=== PATIENT | male | born 1930 | race Hispanic/Latino ===

== ENCOUNTER 2019-04-24 14:43 | Inpatient (IN) | payer MEDICARE ==
--- NOTE | 2019-04-24 15:17 | Emergency Department Report ---
HPI - General Time Seen by Provider: 04/24/19 14:49 - HPI HPI: Room 1 The patient is an 88-year-old male presenting with a chief complaint of atrial fibrillation with a rapid ventricular response. The patient has history of A. fib and is currently on Eliquis. The patient states he had episodes of substernal chest pain 3 days ago and went to the hospital where he was observed and had a chest x-ray and serial labs performed (the patient states all of his studies were normal). Patient states his pain resolved and he was in his usual state of health when he followed up with his alley tender (Dr. Godinez) today. In his alley tender's office he was found to be tachycardic with a rate in the 120s and subsequently sent to the ED for further management. The patient is current ly asymptomatic. Patient does not feel palpitations. The patient states his last stress test occurred approximately 1.5 years ago but he has never had a cardiac catheterization Location: [See above] Duration: [See above] Quality: [See above] Severity: [See above] Timing: [See above] Context: [See above] Modifying factors: [See above] Associated signs and symptoms: [see above] ED Past Medical Hx - Past Medical History Hx Hypertension: Yes Additional medical history: Atrial fibrillation - Surgical History Additional Surgical History: Exploratory laparotomy, right hip replacement, herniorrhaphy - Family History Family history: no significant - Social History Smoking Status: Never Smoker Substance Use Type: None - Medications Home Medications: Home Medications Medication Instructions Recorded Confirmed Last Taken Type Apixaban [Eliquis] 5 mg PO Q12HR 04/24/19 04/24/19 Unknown History Aspirin [Aspirin BABY CHEW TAB] 81 mg PO QDAY 04/24/19 04/24/19 Unknown History Furosemide [Lasix TAB] 40 mg PO BID 04/24/19 04/24/19 Unknown History Metoprolol Tartrate 25 mg PO BID 04/24/19 04/24/19 Unknown History Pantoprazole 40 mg PO DAILY 04/24/19 04/24/19 Unknown History Tamsulosin [Flomax] 0.4 mg PO QDAY 04/24/19 04/24/19 Unknown History ED Review of Systems ROS: Stated complaint: FAST HEART RATE Other details as noted in HPI Constitutional: no symptoms reported Eyes: denies: eye pain ENT: denies: throat pain Respiratory: no symptoms reported Cardiovascular: denies: chest pain, palpitations Endocrine: no symptoms reported Gastrointestinal: denies: abdominal pain Genitourinary: denies: urgency Musculoskeletal: denies: back pain Neurological: denies: headache Physical Exam - Physical Exam Physical Exam: GENERAL: The patient is well-developed well-nourished male lying on stretcher not appearing to be in acute distress. [] HEENT: Normocephalic. Atraumatic. Extraocular motions are intact. Patient has moist mucous membranes. NECK: Supple. Trachea midline CHEST/LUNGS: Clear to auscultation. There is no respiratory distress noted. HEART/CARDIOVASCULAR: Irregularly irregular. There is tachycardia. There is no gallop rub or murmur. ABDOMEN: Abdomen is soft, nontender. Patient has normal bowel sounds. There is no abdominal distention. SKIN: There is no rash. There is no edema. There is no diaphoresis. NEURO: The patient is awake, alert, and oriented. The patient is cooperative. The patient has no focal neurologic deficits. The patient has normal speech MUSCULOSKELETAL: There is no evidence of acute injury. ED Course - Consultations Consultation #1: 04/24/19 15:40 Case discussed with alley tender Dr. Godinez and Cabrera Adames. Recommend initiating amiodarone bolus and drip. Admit to hospital ED Medical Decision Making - Lab Data Result diagrams: 04/24/19 15:13 04/24/19 15:13 Laboratory Tests 04/24/19 04/24/19 04/24/19 15:13 15:13 15:13 WBC 6.1 RBC 4.42 Hgb 14.3 Hct 43.6 MCV 99 H MCH 32 MCHC 33 RDW 13.3 Plt Count 242 Lymph % (Auto) 23.3 [place] % (Auto) 8.7 H Eos % (Auto) 3.6 Baso % (Auto) 0.9 Lymph # 1.4 [place] # 0.5 Eos # 0.2 Baso # 0.1 Seg Neutrophils % 63.5 Seg Neutrophils # 3.9 PT 14.2 INR 1.11 APTT 26.9 Sodium 139 Potassium 4.3 Chloride 105.3 Carbon Dioxide 23 Anion Gap 15 BUN 19 Creatinine 1.4 Estimated GFR 48 BUN/Creatinine Ratio 14 Glucose 110 H Calcium 8.9 Magnesium Total Bilirubin 1.00 AST 12 ALT 13 Alkaline Phosphatase 56 Total Creatine Kinase CK-MB (CK-2) CK-MB (CK-2) Rel Index Troponin T Total Protein 6.9 Albumin 3.6 L Albumin/Globulin Ratio 1.1 TSH Free T4 04/24/19 04/24/19 15:13 15:13 WBC RBC Hgb Hct MCV MCH MCHC RDW Plt Count Lymph % (Auto) [place] % (Auto) Eos % (Auto) Baso % (Auto) Lymph # [place] # Eos # Baso # Seg Neutrophils % Seg Neutrophils # PT INR APTT Sodium Potassium Chloride Carbon Dioxide Anion Gap BUN Creatinine Estimated GFR BUN/Creatinine Ratio Glucose Calcium Magnesium 2.20 Total Bilirubin AST ALT Alkaline Phosphatase Total Creatine Kinase 110 CK-MB (CK-2) 3.5 CK-MB (CK-2) Rel Index 3.1 Troponin T < 0.010 Total Protein Albumin Albumin/Globulin Ratio TSH 2.560 Free T4 1.22 - EKG Data -: EKG Interpreted by Me Rate: tachycardia (atrial flutter) - EKG Data When compared to previous EKG there are: previous EKG unavailable Interpretation: other (atrial flutter) - Radiology Data Radiology results: image reviewed (chest x-ray) interpreted by me: Chest x-ray-no focal infiltrates, no pneumothorax - Differential Diagnosis atrial fibrillation with a rapid ventricular response Critical care attestation.: If time is entered above; I have spent that time in minutes in the direct care of this critically ill patient, excluding procedure time. ED Disposition Clinical Impression: Atrial flutter Disposition: OP ADMIT IP TO THIS HOSP Is pt being admited?: Yes Does the pt Need Aspirin: Yes Condition: Fair Time of Disposition: 16:00 (hospitalist notified (Dr Rosa))
[2019-04-24 15:25] LABS: Basophils # (Auto) 0.1 K/mm3 (0.0-0.1); Basophils % (Auto) 0.9 % (0.0-1.8); Eosinophils # (Auto) 0.2 K/mm3 (0.0-0.4); Eosinophils % (Auto) 3.6 % (0.0-4.3); Hematocrit 43.6 % (35.5-45.6); Hemoglobin 14.3 gm/dl (11.8-15.2); Lymphocytes # (Auto) 1.4 K/mm3 (1.2-5.4); Lymphocytes % (Auto) 23.3 % (13.4-35.0); Mean Corpuscular HGB Conc 33 % (32-34); Mean Corpuscular Volume 99 fl (84-94); Monocytes # (Auto) 0.5 K/mm3 (0.0-0.8); Monocytes % (Auto) 8.7 % (0.0-7.3); Platelet Count 242 K/mm3 (140-440); Red Blood Count 4.42 M/mm3 (3.65-5.03); Red Cell Distribution Width 13.3 % (13.2-15.2)
[2019-04-24] MEDS ORDERED: dilTIAZem 25 MG/5 ML INJ IV ONE (15:26)
[2019-04-24 15:35] LABS: INR 1.11 (0.87-1.13)
[2019-04-24 15:36] LABS: Partial Thromboplastin Time 26.9 Sec. (24.2-36.6)
[2019-04-24] MEDS ORDERED: AMIODARONE 150 MG/3 ML INJ IV ONE (15:38)
--- NOTE | 2019-04-24 15:45 | Event Note ---
Date: 04/24/19 Pt is followed in our office by Dr. Brooke. He has PMHx of paroxysmal atrial flutter (anticoagulated on Eliquis), HTN, HLP, BLE lymphedema. He presented to our office today for scheduled appt and was found to be in atrial flutter with rvr and was referred to ED for further eval/management. Initiate IV amio and resume home Eliquis. Admission per hospitalists. Echo done 12/2018 showed EF 60- 65%, no significant valvular abnormalities. Further recs to follow per hospital course. Soraida RODRIGUEZ NP / DR. RBOOKE
[2019-04-24 15:46] LABS: Creatine Kinase MB 3.5 ng/mL (0.0-4.0)
[2019-04-24 15:50] LABS: Albumin 3.6 g/dL (3.9-5); Calcium 8.9 mg/dL (8.4-10.2)
[2019-04-24 15:57] LABS: Free T4 (Free Thyroxine) 1.22 ng/dL (0.76-1.46)
[2019-04-24] MEDS ORDERED: SODIUM CHLORIDE 0.9% 500 ML 500 ML ONE (16:10)
--- NOTE | 2019-04-24 16:46 | XRay Report ---
CHEST 1 VIEW 04/24/2019 4:20 PM INDICATION / CLINICAL INFORMATION: atrial flutter. COMPARISON: None available. FINDINGS: SUPPORT DEVICES: None. HEART / MEDIASTINUM: Cardiac size is normal with mild aortic atherosclerosis and central vascular con gestion. LUNGS / PLEURA: Lung volumes are reduced with probable bibasilar atelectasis. No significant pleural effusion. No pneumothorax. ADDITIONAL FINDINGS: No significant additional findings. IMPRESSION: 1. Central vascular congestion may be due in part to low lung volumes resulting in crowding of the va sculature. 2. Probable bibasilar atelectasis. Signer Name: Gael Bhatt MD Signed: 04/24/2019 4:42 PM Workstation Name: [id number]
[2019-04-24] MEDS: AMIODARONE 900 MG in DEXTROSE 5% IN WATER 482 ML IV SCH (16:57)
[2019-04-24] MEDS ORDERED: HYDROmorphone 1 MG/1 ML INJ IV PRN (18:07)
[2019-04-24] MEDS ORDERED: ACETAMINOPHEN 325 MG TAB PO PRN (18:07)
[2019-04-24] MEDS ORDERED: ONDANSETRON 4 MG/2 ML INJ IV PRN (18:07)
[2019-04-24] MEDS ORDERED: METOCLOPRAMIDE 10 MG/2 ML INJ IV PRN (18:07)
[2019-04-24] MEDS ORDERED: oxyCODONE /ACETAMINOPHEN 5-325MG TAB PO PRN (18:07)
[2019-04-24] MEDS ORDERED: NON-FORMULARY EACH (Pantoprazole 40 MG) PO SCH (18:15)
[2019-04-24] MEDS ORDERED: PANTOPRAZOLE 40 MG TAB PO ONE (19:42)
[2019-04-24] MEDS ORDERED: ASPIRIN 325 MG TAB ONE (19:42)
[2019-04-24] MEDS ORDERED: ASPIRIN 81 MG TAB CHEW ONE (19:46)
[2019-04-24] MEDS: ASPIRIN 81 MG TAB CHEW PO SCH (19:47)
[2019-04-24] MEDS: PANTOPRAZOLE 40 MG TAB PO SCH (19:47)
[2019-04-24] MEDS: TAMSULOSIN 0.4 MG CAP PO SCH (19:47)
[2019-04-24] MEDS: METOPROLOL TARTRATE 25 MG TAB PO SCH (21:57)
[2019-04-24] MEDS: FUROSEMIDE 40 MG TAB PO SCH (21:58)
[2019-04-24] MEDS: APIXABAN 5 MG TAB PO SCH (21:58)
[2019-04-24] MEDS: FAMOTIDINE 20 MG TAB PO SCH (21:59)
[2019-04-24] MEDS ORDERED: NON-FORMULARY EACH (Metoprolol Tartrate 25 MG) PO SCH (22:00)
[2019-04-25 06:47] LABS: Basophils # (Auto) 0.1 K/mm3 (0.0-0.1); Basophils % (Auto) 1.3 % (0.0-1.8); Eosinophils # (Auto) 0.3 K/mm3 (0.0-0.4); Eosinophils % (Auto) 3.2 % (0.0-4.3); Hematocrit 43.6 % (35.5-45.6); Hemoglobin 14.6 gm/dl (11.8-15.2); Lymphocytes # (Auto) 1.9 K/mm3 (1.2-5.4); Lymphocytes % (Auto) 23.6 % (13.4-35.0); Mean Corpuscular HGB Conc 34 % (32-34); Mean Corpuscular Volume 98 fl (84-94); Monocytes # (Auto) 0.7 K/mm3 (0.0-0.8); Monocytes % (Auto) 8.9 % (0.0-7.3); Platelet Count 239 K/mm3 (140-440); Red Blood Count 4.45 M/mm3 (3.65-5.03); Red Cell Distribution Width 13.3 % (13.2-15.2)
[2019-04-25 07:06] LABS: Albumin 4.1 g/dL (3.9-5); Calcium 8.9 mg/dL (8.4-10.2)
--- NOTE | 2019-04-25 07:33 | Event Note ---
Date: 04/24/19 See H/p in reports A fib with rvr
--- NOTE | 2019-04-25 08:01 | History and Physical Report ---
CHIEF COMPLAINT: Palpitations since a.m. HISTORY OF PRESENT ILLNESS: An 88-year-old male who presents to the Cardiology office with palpitations. The patient was found to be in atrial fibrillation with rapid ventricular response. The patient has episodes of chest pain for the last 3 days. The patient had an echocardiogram recently, which was normal. The patient was sent from the slagger's office to the Emergency Room for management of atrial fibrillation with rapid ventricular response. PAST MEDICAL HISTORY: Significant for hypertension and atrial fibrillation. PAST SURGICAL HISTORY: Exploratory laparotomy, right hip replacement, and herniorrhaphy. FAMILY HISTORY: No significant family history. SOCIAL HISTORY: Does not smoke. No alcohol, no recreational drugs. CURRENT MEDICATIONS: Lasix 40 mg twice a day, metoprolol 25 mg twice a day, tamsulosin 0.4 mg p.o. daily, and Eliquis 5 mg q. 12 hours. REVIEW OF SYSTEMS: Significant for palpitations and intermittent chest pain for 3 days. Otherwise, review of systems is negative. PHYSICAL EXAMINATION: GENERAL: Elderly male, cooperative during examination. VITAL SIGNS: Blood pressure is 115/67, heart rate is in the 150s, temperature 97.6, pulse is 94, and respiratory rate is 16. HEENT: Unremarkable. NECK: Supple, no lymphadenopathy, no thyromegaly. LUNGS: Clear to auscultation and percussion. Good air entry. CARDIOVASCULAR: S1, S2 heard. No gallop, no murmur, no rub. Apical impulse in left fifth intercostal space and midclavicular line. ABDOMEN: Soft and benign. No hepatosplenomegaly. No guarding, no rigidity. Hernial orifices are normal. EXTREMITIES: Good pedal pulses. No pedal edema. CENTRAL NERVOUS SYSTEM: Alert and oriented x 4, nonfocal exam. SKIN: Normal. LABORATORY DATA AND IMAGING STUDIES: EKG shows atrial fibrillation with rapid ventricular, heart rate of 150. Chest x-ray, no acute findings. Labs significant for normal CBC and normal electrolytes. A1c is 6.1, glucose is 110, albumin is 3.6, slightly low. ASSESSMENT AND PLAN: 1. Atrial fibrillation with rapid ventricular response. The patient started on amiodarone drip and titrated to 1.5 mg. Cardiology consult was requested, on anticoagulation with Eliquis. Chest pain, rule out myocardial infarction, serial troponins. We will defer to Cardiology regarding stress test. The patient had a recent echo, which was normal. 2. Hypertension. Continue metoprolol 25 mg twice a day. 3. Congestive heart failure. Continue furosemide 40 mg twice a day. The patient is not on potassium. Potassium was started. 4. Benign prostatic hypertrophy. Continue tamsulosin. 5. Deep venous thrombosis prophylaxis. The patient is already on Eliquis and Protonix. No need for GI prophylaxis and deep venous thrombosis prophylaxis. JOB# [id number] VSM/NTS
[2019-04-25] MEDS: ASPIRIN 81 MG TAB CHEW PO SCH (11:17)
[2019-04-25] MEDS: FAMOTIDINE 20 MG TAB PO SCH ×2 (11:17→21:18)
[2019-04-25] MEDS: FUROSEMIDE 40 MG TAB PO SCH ×2 (11:17→21:18)
[2019-04-25] MEDS: PANTOPRAZOLE 40 MG TAB PO SCH (11:18)
[2019-04-25] MEDS: POTASSIUM CHLORIDE ER 20 MEQ TAB PO SCH ×2 (11:18→21:19)
[2019-04-25] MEDS: METOPROLOL TARTRATE 25 MG TAB PO SCH ×2 (11:18→21:19)
[2019-04-25] MEDS: TAMSULOSIN 0.4 MG CAP PO SCH (11:18)
[2019-04-25] MEDS: APIXABAN 5 MG TAB PO SCH ×2 (11:18→21:19)
--- NOTE | 2019-04-25 11:29 | Consultation ---
History of Present Illness Consult date: 04/25/19 Requesting physician: KELSEA CONTRERAS Consult reason: atrial fibrillation, known to you History of present illness: Pt is an 88YO male with a past medical history of paroxysmal atrial flutter (anticoagulated on Eliquis), HTN, HLP, BLE lymphedema. He is followed in our office by Dr. Godinez. He presented to our office yesterday for scheduled appt, c/o some SOB, increased BLE swelling, near syncopal spells at home and was found to be in atrial flutter with rvr and was referred to ED for further eval/management. He was initiated on IV amio overnight. He remains in AFlutter with HR 120s although he states he is feeling better today. Echo done 12/2018 showed EF 60-65%, no significant valvular abnormalities. Lexiscan MPI stress test done 12/2015 was negative. Past History Past Medical History: atrial fib, hypertension, hyperlipidemia, other (BLE lymphedema) Social history: , lives with family. denies: smoking, alcohol abuse, prescription drug abuse Medications and Allergies Allergies Allergy/AdvReac Type Severity Reaction Status Date / Time oxycodone AdvReac Unknown Verified 04/24/19 15:10 Home Medications Medication Instructions Recorded Confirmed Last Taken Type Apixaban [Eliquis] 5 mg PO Q12HR 04/24/19 04/24/19 Unknown History Aspirin [Aspirin BABY CHEW TAB] 81 mg PO QDAY 04/24/19 04/24/19 Unknown History Furosemide [Lasix TAB] 40 mg PO BID 04/24/19 04/24/19 Unknown History Metoprolol Tartrate 25 mg PO BID 04/24/19 04/24/19 Unknown History Pantoprazole 40 mg PO DAILY 04/24/19 04/24/19 Unknown History Tamsulosin [Flomax] 0.4 mg PO QDAY 04/24/19 04/24/19 Unknown History Active Meds: Active Medications Acetaminophen (Tylenol) 650 mg PO Q4H PRN PRN Reason: Pain MILD(1-3)/Fever >100.5/BURNETT Apixaban (Eliquis) 5 mg PO Q12HR [facility]; Protocol Last Admin: 04/25/19 11:18 Dose: 5 mg Documented by: Aspirin (Baby Aspirin) 81 mg PO QDAY [facility] Last Admin: 04/25/19 11:17 Dose: 81 mg Documented by: Famotidine (Pepcid) 20 mg PO BID [facility] Last Admin: 04/25/19 11:17 Dose: 20 mg Documented by: Furosemide (Lasix) 40 mg PO BID [facility] Last Admin: 04/25/19 11:17 Dose: 40 mg Documented by: Hydromorphone HCl (Dilaudid) 0.5 mg IV Q3H PRN PRN Reason: Pain , Severe (7-10) Amiodarone HCl 900 mg/ (Dextrose) 500 mls @ 33.333 mls/hr IV DIRECT [facility]; Protocol Last Admin: 04/24/19 16:57 Dose: 1 mg/min, 33.333 mls/hr Documented by: Metoclopramide HCl (Reglan) 10 mg IV Q6H PRN PRN Reason: Nausea And Vomiting Metoprolol Tartrate (Metoprolol) 25 mg PO BID [facility] Last Admin: 04/25/19 11:18 Dose: 25 mg Documented by: Ondansetron HCl (Zofran) 4 mg IV Q8H PRN PRN Reason: Nausea And Vomiting Oxycodone/Acetaminophen (Percocet 5/325) 1 tab PO Q6H PRN PRN Reason: Pain, Moderate (4-6) Pantoprazole Sodium (Protonix) 40 mg PO DAILY [facility] Last Admin: 04/25/19 11:18 Dose: 40 mg Documented by: Potassium Chloride (K-Dur) 20 meq PO BID [facility] Last Admin: 04/25/19 11:18 Dose: 20 meq Documented by: Sodium Chloride (Sodium Chloride Flush Syringe 10 Ml) 10 ml IV BID [facility] Last Admin: 04/25/19 11:18 Dose: 10 ml Documented by: Sodium Chloride (Sodium Chloride Flush Syringe 10 Ml) 10 ml IV PRN PRN PRN Reason: LINE FLUSH Tamsulosin HCl (Flomax) 0.4 mg PO QDAY [facility] Last Admin: 04/25/19 11:18 Dose: 0.4 mg Documented by: Review of Systems Constitutional: no fever, no chills, no sweats Ears, nose, mouth and throat: no ear pain, no nose pain, no sinus pressure, no sinus pain Cardiovascular: edema, shortness of breath, dyspnea on exertion, leg edema, no chest pain, no orthopnea, no palpitations, no rapid/irregular heart beat, no syncope, no lightheadedness Respiratory: shortness of breath, dyspnea on exertion, no cough, no congestion, no wheezing, no pain on inspiration Gastrointestinal: no abdominal pain, no nausea, no vomiting, no diarrhea, no c onstipation, no change in bowel habits Genitourinary Male: no dysuria, no hematuria, no flank pain, no discharge, no urinary frequency, no urinary hesitancy Musculoskeletal: no neck stiffness, no neck pain, no shooting arm pain, no arm numbness/tingling, no low back pain, no shooting leg pain Integumentary: no rash, no pruritis, no redness, no sores Neurological: no head injury, no paralysis, no weakness, no parathesias, no numbness, no tingling, no seizures, no syncope Psychiatric: no anxiety Endocrine: no cold intolerance, no heat intolerance Hematologic/Lymphatic: no easy bruising, no easy bleeding Allergic/Immunologic: no urticaria, no wheezing Physical Examination Vital Signs Temp Pulse Resp BP Pulse Ox 98.2 F 126 H 14 132/84 99 04/24/19 15:11 04/24/19 15:11 04/24/19 15:11 04/24/19 15:11 04/24/19 15:11 General appearance: no acute distress HEENT: Positive: PERRL, Normocephaly, Mucus Membranes Moist Neck: Positive: neck supple, trachea midline Cardiac: Positive: irregularly irregular, S1/S2, Tachycardia Lungs: Positive: Decreased Breath Sounds Neuro: Positive: Grossly Intact Abdomen: Negative: Tender Skin: Negative: Rash Musculoskeletal: No Pain Extremities: Present: +2 Edema (BLE lymphedema) Results 04/25/19 05:48 04/25/19 05:48 Cardiac Enzymes 04/24/19 04/24/19 04/25/19 Range/Units 15:13 15:13 05:48 AST 12 12 (5-40) units/L CK-MB (CK-2) 3.5 (0.0-4.0) ng/mL Coagulation 04/24/19 Range/Units 15:13 PT 14.2 (12.2-14.9) Sec. INR 1.11 (0.87-1.13) APTT 26.9 (24.2-36.6) Sec. CBC 04/24/19 04/25/19 Range/Units 15:13 05:48 WBC 6.1 7.9 (4.5-11.0) K/mm3 RBC 4.42 4.45 (3.65-5.03) M/mm3 Hgb 14.3 14.6 (11.8-15.2) gm/dl Hct 43.6 43.6 (35.5-45.6) % Plt Count 242 239 (140-440) K/mm3 Lymph # 1.4 1.9 (1.2-5.4) K/mm3 Bartholomew # 0.5 0.7 (0.0-0.8) K/mm3 Eos # 0.2 0.3 (0.0-0.4) K/mm3 Baso # 0.1 0.1 (0.0-0.1) K/mm3 Comprehensive Metabolic Panel 04/24/19 04/25/19 Range/Units 15:13 05:48 Sodium 139 143 (137-145) mmol/L Potassium 4.3 4.2 (3.6-5.0) mmol/L Chloride 105.3 104.7 (98-107) mmol/L Carbon Dioxide 23 25 (22-30) mmol/L BUN 19 18 (9-20) mg/dL Creatinine 1.4 1.4 (0.8-1.5) mg/dL Glucose 110 H 106 H (75-100) mg/dL Calcium 8.9 8.9 (8.4-10.2) mg/dL AST 12 12 (5-40) units/L ALT 13 13 (7-56) units/L Alkaline Phosphatase 56 60 (35-129) units/L Total Protein 6.9 6.6 (6.3-8.2) g/dL Albumin 3.6 L 4.1 (3.9-5) g/dL - Imaging and Cardiology Echo: report reviewed ( 12/2018 showed EF 60-65%, no significant valvular abnormalities. ) EKG: report reviewed, image reviewed EKG interpretations - Telemetry EKG Rhythm: Atrial Flutter - EKG Supraventricular dysrhythmia: atrial flutter Assessment and Plan Will attempt to optimize HR/chemical conversion - give additional bolus of IV amio and cont amio gtt. Cont PO lopressor and titrate as tolerated. Pt may ultimately require DCCV. Pt has been anticoagulated with Eliquis at home, however, he reports intermittent noncompliance over the past several months and therefore we have recommended LONG guided DCCV if unable to chemically convert to NSR. We will tentatively plan for LONG guided DCCV tomorrow around 7:30AM. Indications, potential risks and benefits of LONG guided DCCV reviewed with pt and pt's at bedside and they are agreeable to proceed. NPO after MN. The patient has been seen in conjunction with Dr. Godinez who agrees with the assessment and plan of care. - Patient Problems (1) Atrial flutter with rapid ventricular response Current Visit: Yes Status: Acute (2) HTN (hypertension) Current Visit: Yes Status: Chronic (3) Hyperlipidemia Current Visit: Yes Status: Chronic (4) Lymphedema of both lower extremities Current Visit: Yes Status: Chronic
[2019-04-25] MEDS ORDERED: AMIODARONE 150 MG in DEXTROSE 5% IN WATER 97 ML IV ONE (11:35)
[2019-04-25] MEDS: AMIODARONE 900 MG in DEXTROSE 5% IN WATER 482 ML IV SCH (14:21)
--- NOTE | 2019-04-25 14:43 | Progress Note ---
Assessment and Plan Assessment and plan: 88-year-old male was sent from cardiology office for afib with RVR A. fib with RVR - Patient is on IV amiodarone, continue and eliquis and metoprolol - Rate is controlled, still in a.fib - Cardiology documented that they are going to do electric cardioversion tomorrow Disposition; continue inpatient care History Interval history: Patient was seen and evaluated this morning, patient was alert and oriented, denied any palpitations. Hospitalist Physical - Physical exam Narrative exam: Not in cardiopulmonary distress. The patient appeared well nourished and normally developed. Vital signs as documented. Head exam is unremarkable. No scleral icterus . Neck is without jugular venous distension, thyromegaly, or carotid bruits. Lungs are clear to auscultation. Cardiac exam reveals irregular rate and Rhythm. Abdominal exam reveals normal bowel sounds. Extremities are nonedematous and both femoral and pedal pulses are normal. ROTARY DRILL OPERATOR: Alert and oriented 3. No focal weakness. - Constitutional Vitals: Temp Pulse Resp BP Pulse Ox 97.4 F L 113 H 18 139/95 96 04/25/19 08:45 04/25/19 14:06 04/25/19 08:45 04/25/19 08:45 04/25/19 04:00 General appearance: Present: no acute distress Results - Labs CBC & Chem 7: 04/25/19 05:48 04/25/19 05:48 Labs: Laboratory Last Values WBC 7.9 K/mm3 (4.5-11.0) 04/25/19 05:48 RBC 4.45 M/mm3 (3.65-5.03) 04/25/19 05:48 Hgb 14.6 gm/dl (11.8-15.2) 04/25/19 05:48 Hct 43.6 % (35.5-45.6) 04/25/19 05:48 MCV 98 fl (84-94) H 04/25/19 05:48 MCH 33 pg (28-32) H 04/25/19 05:48 MCHC 34 % (32-34) 04/25/19 05:48 RDW 13.3 % (13.2-15.2) 04/25/19 05:48 Plt Count 239 K/mm3 (140-440) 04/25/19 05:48 Lymph % (Auto) 23.6 % (13.4-35.0) 04/25/19 05:48 [place] % (Auto) 8.9 % (0.0-7.3) H 04/25/19 05:48 Eos % (Auto) 3.2 % (0.0-4.3) 04/25/19 05:48 Baso % (Auto) 1.3 % (0.0-1.8) 04/25/19 05:48 Lymph # 1.9 K/mm3 (1.2-5.4) 04/25/19 05:48 [place] # 0.7 K/mm3 (0.0-0.8) 04/25/19 05:48 Eos # 0.3 K/mm3 (0.0-0.4) 04/25/19 05:48 Baso # 0.1 K/mm3 (0.0-0.1) 04/25/19 05:48 Seg Neutrophils % 63.0 % (40.0-70.0) 04/25/19 05:48 Seg Neutrophils # 5.0 K/mm3 (1.8-7.7) 04/25/19 05:48 PT 14.2 Sec. (12.2-14.9) 04/24/19 15:13 INR 1.11 (0.87-1.13) 04/24/19 15:13 APTT 26.9 Sec. (24.2-36.6) 04/24/19 15:13 Sodium 143 mmol/L (137-145) 04/25/19 05:48 Potassium 4.2 mmol/L (3.6-5.0) 04/25/19 05:48 Chloride 104.7 mmol/L (98-107) 04/25/19 05:48 Carbon Dioxide 25 mmol/L (22-30) 04/25/19 05:48 Anion Gap 18 mmol/L 04/25/19 05:48 BUN 18 mg/dL (9-20) 04/25/19 05:48 Creatinine 1.4 mg/dL (0.8-1.5) 04/25/19 05:48 Estimated GFR 48 ml/min 04/25/19 05:48 BUN/Creatinine Ratio 13 % 04/25/19 05:48 Glucose 106 mg/dL (75-100) H 04/25/19 05:48 Hemoglobin A1c 6.1 % (4-6) H 04/24/19 15:13 Calcium 8.9 mg/dL (8.4-10.2) 04/25/19 05:48 Magnesium 2.20 mg/dL (1.7-2.3) 04/24/19 15:13 Total Bilirubin 1.70 mg/dL (0.1-1.2) H 04/25/19 05:48 AST 12 units/L (5-40) 04/25/19 05:48 ALT 13 units/L (7-56) 04/25/19 05:48 Alkaline Phosphatase 60 units/L (35-129) 04/25/19 05:48 Total Creatine Kinase 110 units/L (55-170) 04/24/19 15:13 CK-MB (CK-2) 3.5 ng/mL (0.0-4.0) 04/24/19 15:13 CK-MB (CK-2) Rel Index 3.1 (0-4) 04/24/19 15:13 Troponin T < 0.010 ng/mL (0.00-0.029) 04/24/19 15:13 Total Protein 6.6 g/dL (6.3-8.2) 04/25/19 05:48 Albumin 4.1 g/dL (3.9-5) 04/25/19 05:48 Albumin/Globulin Ratio 1.6 % 04/25/19 05:48 TSH 2.560 mlU/mL (0.270-4.200) 04/24/19 15:13 Free T4 1.22 ng/dL (0.76-1.46) 04/24/19 15:13 Active Medications - Current Medications Current Medications: Generic Name Dose Route Start Last Admin Trade Name Freq PRN Reason Stop Dose Admin Acetaminophen 650 mg 04/24/19 18:07 Tylenol PO Q4H PRN Pain MILD(1-3)/Fever >100.5/BURNETT Apixaban 5 mg 04/24/19 22:00 04/25/19 11:18 Eliquis PO 5 mg Q12HR [facility] Administration Protocol Aspirin 81 mg 04/24/19 19:00 04/25/19 11:17 Baby Aspirin PO 81 mg QDAY [facility] Administration Famotidine 20 mg 04/24/19 22:00 04/25/19 11:17 Pepcid PO 20 mg BID [facility] Administration Furosemide 40 mg 04/24/19 22:00 04/25/19 11:17 Lasix PO 40 mg BID [facility] Administration Hydromorphone HCl 0.5 mg 04/24/19 18:07 Dilaudid IV Q3H PRN Pain , Severe (7-10) Amiodarone HCl 900 mg/ 500 mls @ 33.333 mls/hr 04/24/19 16:00 04/25/19 14:21 Dextrose IV 0.5 mg/min DIRECT [facility] 16.66 mls/hr Administration Protocol 1 MG/MIN Metoclopramide HCl 10 mg 04/24/19 18:07 Reglan IV Q6H PRN Nausea And Vomiting Metoprolol Tartrate 25 mg 04/24/19 22:00 04/25/19 11:18 Metoprolol PO 25 mg BID [facility] Administration Ondansetron HCl 4 mg 04/24/19 18:07 Zofran IV Q8H PRN Nausea And Vomiting Oxycodone/Acetaminophen 1 tab 04/24/19 18:07 Percocet 5/325 PO Q6H PRN Pain, Moderate (4-6) Pantoprazole Sodium 40 mg 04/24/19 18:30 04/25/19 11:18 Protonix PO 40 mg DAILY [facility] Administration Potassium Chloride 20 meq 04/25/19 10:00 04/25/19 11:18 K-Dur PO 20 meq BID [facility] Administration Sodium Chloride 10 ml 04/24/19 22:00 04/25/19 11:18 Sodium Chloride Flush Syringe 10 Ml IV 10 ml BID [facility] Administration Sodium Chloride 10 ml 04/24/19 18:07 Sodium Chloride Flush Syringe 10 Ml IV PRN PRN LINE FLUSH Tamsulosin HCl 0.4 mg 04/24/19 19:00 04/25/19 11:18 Flomax PO 0.4 mg QDAY [facility] Administration
[2019-04-26 06:02] LABS: Calcium 8.4 mg/dL (8.4-10.2)
[2019-04-26] MEDS ORDERED: SODIUM CHLORIDE 0.9% 500 ML 500 ML IV SCH (07:00)
[2019-04-26] MEDS ORDERED: BENZOCAINE 20% TOP SPRAY 0.5 ML UNIT DOSE MM NR (07:00)
[2019-04-26] MEDS ORDERED: PROPOFOL 200 MG/20 ML VIAL IV ONE ×2 (07:06)
--- NOTE | 2019-04-26 07:26 | Anesthesia Consultation ---
Anesthesia Consult and Med Hx Date of service: 04/26/19 - Airway Anesthetic Teeth Evaluation: Dentures ROM Head & Neck: Adequate Mental/Hyoid Distance: Adequate Mallampati Class: Class II Intubation Access Assessment: Good - Pulmonary Exam CTA: Yes - Cardiac Exam Cardiac Exam: RRR - Pre-Operative Health Status ASA Pre-Surgery Classification: ASA3 Proposed Anesthetic Plan: General - Cardiovascular System Hx Hypertension: Yes - Central Nervous System Hx Psychiatric Problems: No
--- NOTE | 2019-04-26 07:26 | Anesthesia Day of Surgery ---
Anesthesia Day of Surgery - Day of Surgery Patient Examined: Yes Patient H&P Reviewed: Yes Patient is NPO: Yes
[2019-04-26] MEDS ORDERED: EPINEPHrine 1:10,000 1 MG/10 ML SYRINGE ONE (07:54)
[2019-04-26] MEDS ORDERED: ePHEDrine SULFATE 50 MG/1 ML INJ ONE (07:56)
[2019-04-26] MEDS ORDERED: LIDOCAINE MPF (2%) 20 MG/1 ML VIAL 5 ML ONE (08:00)
--- NOTE | 2019-04-26 08:00 | Progress Note ---
Assessment and Plan pt was cardioverted to nsr from aflutter, cont elquis and stop amio and cont lopressor and cont diurectics and monitor rhtym and post debbie care discuss with in detail. - Patient Problems (1) Acute diastolic CHF (congestive heart failure) Current Visit: Yes Status: Acute (2) Atrial flutter Current Visit: Yes Status: Acute Qualifiers: Atrial flutter type: typical Qualified Code(s): I48.3 - Typical atrial flutter (3) HTN (hypertension) Current Visit: Yes Status: Chronic (4) Hyperlipidemia Current Visit: Yes Status: Chronic Qualifiers: Hyperlipidemia type: mixed hyperlipidemia Qualified Code(s): E78.2 - Mixed hyperlipidemia (5) Lymphedema of both lower extremities Current Visit: Yes Status: Chronic Subjective Date of service: 04/26/19 Principal diagnosis: aflutter Interval history: pt has no palpations and sob is stable Objective Vital Signs Temp Pulse Pulse Pulse Pulse Resp Resp 04/26/19 07:39 91 H 18 04/26/19 07:33 110 H 04/26/19 07:28 111 H 04/26/19 04:48 121 H 04/26/19 04:08 97.8 F 16 04/26/19 00:01 97.7 F 121 H 20 04/25/19 21:19 125 H 20 04/25/19 19:29 97.9 F 125 H 16 04/25/19 17:16 98.3 F 123 H 18 04/25/19 14:06 113 H 113 H 04/25/19 08:45 97.4 F L 18 Resp BP BP BP Pulse Ox Pulse Ox Pulse Ox 04/26/19 07:39 127/72 97 04/26/19 07:33 14 127/72 100 04/26/19 07:28 12 132/79 98 04/26/19 04:48 04/26/19 04:08 91/58 04/26/19 00:01 103/52 96 04/25/19 21:19 115/60 04/25/19 19:29 115/60 96 04/25/19 17:16 112/79 97 04/25/19 14:06 04/25/19 08:45 139/95 - Physical Examination HEENT: Positive: PERRL, Normocephaly, Mucus Membranes Moist Neck: Positive: neck supple, trachea midline Cardiac: Positive: Reg Rate and Rhythm Lungs: Positive: clear to auscultation Neuro: Positive: Grossly Intact Abdomen: Negative: Tender Skin: Negative: Rash Musculoskeletal: No Pain Extremities: Present: +2 Edema (BLE lymphedema) - Labs and Meds Comprehensive Metabolic Panel 04/26/19 Range/Units 05:27 Sodium 137 (137-145) mmol/L Potassium 4.4 (3.6-5.0) mmol/L Chloride 101.0 (98-107) mmol/L Carbon Dioxide 24 (22-30) mmol/L BUN 19 (9-20) mg/dL Creatinine 1.4 (0.8-1.5) mg/dL Glucose 138 H (75-100) mg/dL Calcium 8.4 (8.4-10.2) mg/dL - Imaging and Cardiology EKG: report reviewed, image reviewed Echo: report reviewed ( 12/2018 showed EF 60-65%, no significant valvular abnormalities. ) DEBBIE: report reviewed (normal lv function, no clot in left atrium, or appendage, moderate mr and no reversal flow in left pulmonary jd, no vegatations and negative bubbles study and grade 2 aorta) - Telemetry EKG Rhythm: Atrial Flutter
[2019-04-26] MEDS ORDERED: SODIUM CHLORIDE 0.9% 500 ML 500 ML ONE (08:15)
[2019-04-26] MEDS ORDERED: SODIUM CHLORIDE 0.9% 500 ML 500 ML IV ONE (08:29)
[2019-04-26] MEDS: APIXABAN 5 MG TAB PO SCH ×2 (10:46→23:04)
[2019-04-26] MEDS: FAMOTIDINE 20 MG TAB PO SCH ×2 (10:46→23:04)
[2019-04-26] MEDS: FUROSEMIDE 40 MG TAB PO SCH ×2 (10:46→23:03)
[2019-04-26] MEDS: PANTOPRAZOLE 40 MG TAB PO SCH (10:46)
[2019-04-26] MEDS: TAMSULOSIN 0.4 MG CAP PO SCH (10:46)
[2019-04-26] MEDS: POTASSIUM CHLORIDE ER 20 MEQ TAB PO SCH ×2 (10:46→23:03)
[2019-04-26] MEDS: ASPIRIN 81 MG TAB CHEW PO SCH (10:46)
[2019-04-26] MEDS: METOPROLOL TARTRATE 25 MG TAB PO SCH ×2 (12:18→23:03)
--- NOTE | 2019-04-26 15:00 | Post Anesthesia Evaluation ---
- Post Anesthesia Evaluation Patient Participated: Yes Airway Patent: Yes Stable Respiratory Function: Yes Nausea/Vomiting: No Temp > 96.8F: Yes Pain Manageable: Yes Adequeate Hydration: Yes Anesthesia Complications: No Block Receding Appropriately: Not Applicable Patient on Ventilator: No
--- NOTE | 2019-04-26 15:41 | Progress Note ---
Assessment and Plan Assessment and plan: 88-year-old male was sent from cardiology office for afib with RVR A. fib with RVR - LONG and electrical cardioversion was done, patient is on NSR - DC amiodarone, continue eliquis and metoprolol - Rate is controlled, NSR - Cardiology consult appreciated Disposition; continue inpatient care History Interval history: Patient was seen and evaluated this morning, patient was alert and oriented, denied any palpitations. Hospitalist Physical - Physical exam Narrative exam: Not in cardiopulmonary distress. The patient appeared well nourished and normally developed. Vital signs as documented. Head exam is unremarkable. No scleral icterus . Neck is without jugular venous distension, thyromegaly, or carotid bruits. Lungs are clear to auscultation. Cardiac exam reveals regular rate and Rhythm. Abdominal exam reveals normal bowel sounds. Extremities are nonedematous and both femoral and pedal pulses are normal. FIRER POWERHOUSE: Alert and oriented 3. No focal weakness. - Constitutional Vitals: Temp Pulse Resp BP Pulse Ox 97.9 F 72 18 114/59 100 04/26/19 10:43 04/26/19 12:18 04/26/19 10:43 04/26/19 12:18 04/26/19 10:43 General appearance: Present: no acute distress Results - Labs CBC & Chem 7: 04/25/19 05:48 04/26/19 05:27 Labs: Laboratory Last Values WBC 7.9 K/mm3 (4.5-11.0) 04/25/19 05:48 RBC 4.45 M/mm3 (3.65-5.03) 04/25/19 05:48 Hgb 14.6 gm/dl (11.8-15.2) 04/25/19 05:48 Hct 43.6 % (35.5-45.6) 04/25/19 05:48 MCV 98 fl (84-94) H 04/25/19 05:48 MCH 33 pg (28-32) H 04/25/19 05:48 MCHC 34 % (32-34) 04/25/19 05:48 RDW 13.3 % (13.2-15.2) 04/25/19 05:48 Plt Count 239 K/mm3 (140-440) 04/25/19 05:48 Lymph % (Auto) 23.6 % (13.4-35.0) 04/25/19 05:48 [place] % (Auto) 8.9 % (0.0-7.3) H 04/25/19 05:48 Eos % (Auto) 3.2 % (0.0-4.3) 04/25/19 05:48 Baso % (Auto) 1.3 % (0.0-1.8) 04/25/19 05:48 Lymph # 1.9 K/mm3 (1.2-5.4) 04/25/19 05:48 [place] # 0.7 K/mm3 (0.0-0.8) 04/25/19 05:48 Eos # 0.3 K/mm3 (0.0-0.4) 04/25/19 05:48 Baso # 0.1 K/mm3 (0.0-0.1) 04/25/19 05:48 Seg Neutrophils % 63.0 % (40.0-70.0) 04/25/19 05:48 Seg Neutrophils # 5.0 K/mm3 (1.8-7.7) 04/25/19 05:48 PT 14.2 Sec. (12.2-14.9) 04/24/19 15:13 INR 1.11 (0.87-1.13) 04/24/19 15:13 APTT 26.9 Sec. (24.2-36.6) 04/24/19 15:13 Sodium 137 mmol/L (137-145) 04/26/19 05:27 Potassium 4.4 mmol/L (3.6-5.0) 04/26/19 05:27 Chloride 101.0 mmol/L (98-107) 04/26/19 05:27 Carbon Dioxide 24 mmol/L (22-30) 04/26/19 05:27 Anion Gap 16 mmol/L 04/26/19 05:27 BUN 19 mg/dL (9-20) 04/26/19 05:27 Creatinine 1.4 mg/dL (0.8-1.5) 04/26/19 05:27 Estimated GFR 48 ml/min 04/26/19 05:27 BUN/Creatinine Ratio 14 % 04/26/19 05:27 Glucose 138 mg/dL (75-100) H 04/26/19 05:27 Hemoglobin A1c 6.1 % (4-6) H 04/24/19 15:13 Calcium 8.4 mg/dL (8.4-10.2) 04/26/19 05:27 Magnesium 2.20 mg/dL (1.7-2.3) 04/24/19 15:13 Total Bilirubin 1.70 mg/dL (0.1-1.2) H 04/25/19 05:48 AST 12 units/L (5-40) 04/25/19 05:48 ALT 13 units/L (7-56) 04/25/19 05:48 Alkaline Phosphatase 60 units/L (35-129) 04/25/19 05:48 Total Creatine Kinase 110 units/L (55-170) 04/24/19 15:13 CK-MB (CK-2) 3.5 ng/mL (0.0-4.0) 04/24/19 15:13 CK-MB (CK-2) Rel Index 3.1 (0-4) 04/24/19 15:13 Troponin T < 0.010 ng/mL (0.00-0.029) 04/24/19 15:13 Total Protein 6.6 g/dL (6.3-8.2) 04/25/19 05:48 Albumin 4.1 g/dL (3.9-5) 04/25/19 05:48 Albumin/Globulin Ratio 1.6 % 04/25/19 05:48 TSH 2.560 mlU/mL (0.270-4.200) 04/24/19 15:13 Free T4 1.22 ng/dL (0.76-1.46) 04/24/19 15:13 Active Medications - Current Medications Current Medications: Generic Name Dose Route Start Last Admin Trade Name Freq PRN Reason Stop Dose Admin Acetaminophen 650 mg 04/24/19 18:07 Tylenol PO Q4H PRN Pain MILD(1-3)/Fever >100.5/BURNETT Apixaban 5 mg 04/24/19 22:00 04/26/19 10:46 Eliquis PO 5 mg Q12HR KVNG Administration Protocol Aspirin 81 mg 04/24/19 19:00 04/26/19 10:46 Baby Aspirin PO 81 mg QDAY KVNG Administration Benzocaine 3 spray 04/26/19 07:00 04/26/19 07:37 Hurricaine One 20% Topical [place] MM 04/27/19 06:59 3 spray PREOP NR Administration Famotidine 20 mg 04/24/19 22:00 04/26/19 10:46 Pepcid PO 20 mg BID KVNG Administration Furosemide 40 mg 04/24/19 22:00 04/26/19 10:46 Lasix PO 40 mg BID KVNG Administration Hydromorphone HCl 0.5 mg 04/24/19 18:07 Dilaudid IV Q3H PRN Pain , Severe (7-10) Sodium Chloride 500 mls @ 50 mls/hr 04/26/19 07:00 04/26/19 07:25 Nacl 0.9% 500 Ml IV 50 mls/hr DIRECT KVNG Administration Metoclopramide HCl 10 mg 04/24/19 18:07 Reglan IV Q6H PRN Nausea And Vomiting Metoprolol Tartrate 25 mg 04/24/19 22:00 04/26/19 12:18 Metoprolol PO Not Given BID KVNG Ondansetron HCl 4 mg 04/24/19 18:07 Zofran IV Q8H PRN Nausea And Vomiting Oxycodone/Acetaminophen 1 tab 04/24/19 18:07 04/25/19 21:19 Percocet 5/325 PO 1 tab Q6H PRN Administration Pain, Moderate (4-6) Pantoprazole Sodium 40 mg 04/24/19 18:30 04/26/19 10:46 Protonix PO 40 mg DAILY KVNG Administration Potassium Chloride 20 meq 04/25/19 10:00 04/26/19 10:46 K-Dur PO 20 meq BID KVNG Administration Sodium Chloride 10 ml 04/24/19 22:00 04/25/19 21:20 Sodium Chloride Flush Syringe 10 Ml IV 10 ml BID KVNG Administration Sodium Chloride 10 ml 04/24/19 18:07 Sodium Chloride Flush Syringe 10 Ml IV PRN PRN LINE FLUSH Tamsulosin HCl 0.4 mg 04/24/19 19:00 04/26/19 10:46 Flomax PO 0.4 mg QDAY KVNG Administration Nutrition/Malnutrition Assess - Dietary Evaluation Nutrition/Malnutrition Findings: Nutrition Notes Start: 04/26/19 10:17 Freq: Status: Active Protocol: Document 04/26/19 10:17 DW (Rec: 04/26/19 10:21 DW [id number]) Co-Sign 04/26/19 10:17 LP Nutrition Notes Need for Assessment generated from: Low BMI Initial or Follow up Brief Note Height 5 ft 6 in Weight 97.7 kg [place] Body Weight (kg) 64.54 BMI 34.7 Subjective/Other Information Screen Low BMI Pt stated his ht is 5' 6" and weighs 215 lbs. Pt also stated his appetite and intakes were good SALES DEVELOPMENT COORDINATOR. Nutrition Intervention Revisit per MD consult or patient Sign Off request:
[2019-04-27] MEDS: POTASSIUM CHLORIDE ER 20 MEQ TAB PO SCH (09:19)
[2019-04-27] MEDS: FUROSEMIDE 40 MG TAB PO SCH (09:20)
[2019-04-27] MEDS: TAMSULOSIN 0.4 MG CAP PO SCH (09:21)
[2019-04-27] MEDS: PANTOPRAZOLE 40 MG TAB PO SCH (09:21)
[2019-04-27] MEDS: FAMOTIDINE 20 MG TAB PO SCH (09:22)
[2019-04-27] MEDS: METOPROLOL TARTRATE 25 MG TAB PO SCH (09:22)
[2019-04-27] MEDS: APIXABAN 5 MG TAB PO SCH (09:24)
[2019-04-27] MEDS: ASPIRIN 81 MG TAB CHEW PO SCH (09:25)
[2019-04-27] MEDS ORDERED: REGADENOSON 0.4 MG/5 ML INJ IV ONE ×2 (10:51→10:55)
[2019-04-27 12:08] VITALS: BP 115/58
--- NOTE | 2019-04-27 13:28 | Discharge Summary ---
Providers - Providers Date of Admission: 04/24/19 15:59 Date of discharge: 04/27/19 Attending physician: TOMEKA TABOR MD 04/24/19 18:07 Consult to Physician [CONS] Routine Comment: Consulting Provider: JUICE BROOKE Physician Instructions: Reason For Exam: SVT Primary care physician: CIVIL SERVICE CLERK Hospitalization Reason for admission: a.fib with RVR Condition: Stable Procedures: electrical cardioversion Hospital course: 88-year-old male presenting with a chief complaint of atrial fibrillation with a rapid ventricular response. The patient has history of A. fib and is currently on Eliquis. The patient states he had episodes of substernal chest pain 3 days ago and went to the hospital where he was observed and had a chest x-ray and serial labs performed (the patient states all of his studies were normal). Patient states his pain resolved and he was in his usual state of health when he followed up with his toucher up (Dr. Brooke) today. In his toucher up's office he was found to be tachycardic with a rate in the 120s and subsequently sent to the ED for further management. The patient is currently asymptomatic. Patient does not feel palpitations. Patient was admitted to the floor and was continued with metoprolol, Eliquis and started on amiodarone. Despite that his rate was not controlled and patient underwent electrical cardioversion with subsequent conversion to sinus rhythm it was controlled. Cardiology evaluated and recommended stress test which was negative. Cardiovascular: To discharge the patient is follow-up in the office. Patient was continued on eliquis, metoprolol and amiodarone the time of discharge. Patient was hemodynamically stable is at discharge. Appropriate medications were given at the time of discharge. Disposition: DC-30 STILL A PATIENT Time spent for discharge: 32 minutes - Discharge Diagnoses (1) Atrial flutter with rapid ventricular response Status: Acute (2) HTN (hypertension) Status: Chronic (3) Hyperlipidemia Status: Chronic Qualifiers: Hyperlipidemia type: mixed hyperlipidemia Qualified Code(s): E78.2 - Mixed hyperlipidemia Core Measure Documentation - Palliative Care Palliative Care/ Comfort Measures: Not Applicable - Core Measures Any of the following diagnoses?: none Exam - Physical Exam Narrative exam: Not in cardiopulmonary distress. The patient appeared well nourished and normally developed. Vital signs as documented. Head exam is unremarkable. No scleral icterus . Neck is without jugular venous distension, thyromegaly, or carotid bruits. Lungs are clear to auscultation. Cardiac exam reveals regular rate and Rhythm. Abdominal exam reveals normal bowel sounds. Extremities are nonedematous and both femoral and pedal pulses are normal. VASCULAR ULTRASOUND TECHNICIAN: Alert and oriented 3. No focal weakness. - Constitutional Vitals: Temp Pulse Resp BP Pulse Ox 97.6 F 64 16 115/58 96 04/27/19 09:13 04/27/19 09:22 04/27/19 09:21 04/27/19 11:56 04/27/19 09:21 Plan Activity: no restrictions Weight Bearing Status: Full Weight Bearing Diet: low salt Follow up with: JUICE BROOKE MD [Staff Physician] - 14 Days (Follow up in our [place] office with Dr. Brooke on 05/02/2019 @ 9:45AM. ) PRIMARY CAREMD [Primary Care Provider] - 7 Days Prescriptions: Amiodarone [Cordarone 200 MG TAB] 200 mg PO DAILY #30 tablet Potassium Chloride [K-Dur] 20 meq PO BID #30 tablet
--- NOTE | 2019-04-27 14:02 | Progress Note ---
Assessment and Plan S/p successful LONG guided DCCV to NSR yesterday morning. Pt currently in SR on tele with one brief bout (~20 beats) apparent AFlutter RVR overnight. S/p lexiscan MPI stress test this AM which was negative. Currently stable cardiac status. Pt may discharge home from cardiology standpoint. At discharge recommend PO amio 200mg daily, cont lopressor and Eliquis. We will arrange for EP consultation at [facility] for possible ablation. Follow up in our [place] office with Dr. Godinez on 05/02/2019 @ 9:45AM. The patient has been seen in conjunction with Dr. Godinez who agrees with the assessment and plan of care. - Patient Problems (1) Atrial flutter with rapid ventricular response Current Visit: Yes Status: Acute (2) HTN (hypertension) Current Visit: Yes Status: Chronic (3) Hyperlipidemia Current Visit: Yes Status: Chronic Qualifiers: Hyperlipidemia type: mixed hyperlipidemia Qualified Code(s): E78.2 - Mixed hyperlipidemia (4) Lymphedema of both lower extremities Current Visit: Yes Status: Chronic Subjective Date of service: 04/27/19 Principal diagnosis: aflutter Interval history: pt resting in bed, no current complaints. in SR on tele with one brief bout (~20 beats) apparent AFlutter RVR overnight. at bedside. Objective Last Vital Signs Temp 97.6 F 04/27/19 09:13 Pulse 64 04/27/19 09:22 Resp 16 04/27/19 09:21 BP 115/58 04/27/19 11:56 Pulse Ox 96 04/27/19 09:21 - Physical Examination General: No Apparent Distress HEENT: Positive: PERRL, Normocephaly, Mucus Membranes Moist Neck: Positive: neck supple, trachea midline Cardiac: Positive: Reg Rate and Rhythm, S1/S2 Lungs: Positive: Decreased Breath Sounds Neuro: Positive: Grossly Intact Abdomen: Negative: Tender Skin: Negative: Rash Musculoskeletal: No Pain Extremities: Present: +2 Edema (BLE lymphedema) - Imaging and Cardiology EKG: report reviewed, image reviewed Echo: report reviewed ( 12/2018 showed EF 60-65%, no significant valvular abnormalities. )
--- NOTE | 2019-04-27 18:50 | Treadmill Report ---
NUCLEAR CARDIAC IMAGING REPORT INDICATION FOR PROCEDURE: Chest pain. Informed consent was obtained. Vasodilator stress was achieved with the intravenous administration of 0.4 mg of Lexiscan per protocol. Rest and stress nuclear cardiac imaging was performed following the intravenous administration of technetium-99m Myoview per protocol. Gated SPECT imaging demonstrates a post-stress left ventricular ejection fraction of 61% with normal wall motion. Myocardial perfusion imaging demonstrates homogeneous distribution of the isotope throughout the left ventricle between stress and rest. Nuclear cardiac imaging demonstrates grossly normal post-stress left ventricular systolic function with no significant evidence of myocardial ischemia or necrosis. JOB# [id number] CALIN/VANI
== END 2019-04-27 14:22 | disposition home or self-care (01) | DRG 291 ==
LOC: ED 14:43 → 4A 15:59
PROVIDERS: ADMIT Internal Medicine; ATTEND Internal Medicine
PROC: 5A2204Z Restoration of Cardiac Rhythm, Single (ICD-10-PCS; principal; 2019-04-26)
DX: I11.0 Hypertensive heart disease with heart failure (principal); I50.31 Acute diastolic (congestive) heart failure; I48.92 Unspecified atrial flutter; N40.0 Benign prostatic hyperplasia without lower urinary tract symptoms; I48.91 Unspecified atrial fibrillation; Z96.641 Presence of right artificial hip joint; I89.0 Lymphedema, not elsewhere classified; E78.2 Mixed hyperlipidemia; R00.0 Tachycardia, unspecified; R06.82 Tachypnea, not elsewhere classified; Z79.82 Long term (current) use of aspirin; Z79.01 Long term (current) use of anticoagulants; Z79.899 Other long term (current) drug therapy; Z88.5 Allergy status to narcotic agent
CPT/HCPCS: 36415; 71045; 78452; 80048; 80053; 82550; 82553; 83036; 83735; 84439; 84443; 84484; 85025; 85610; 85730; 93005; 93010; 93017; 93312; 93320; 93325; 96365; G0378; A9502; J0171; J0282; J2704; J2785; J7040; J7060